=== PATIENT | male | born 1950 | race African-American/Black ===

== ENCOUNTER 2022-07-11 11:54 | Emergency (ER) | payer OTHER, MEDICAID ==
[~2022-07-11] VITALS: Ht 172.7 cm; Wt 83.0 kg
[~2022-07-11 11:54] MED LIST: ALBU6.7H15 INH; AMLO10TA80 PO; ATOR40TA70 PO; AZIT250T12 PO; CHLO25TA2 PO; CLOP75TA33 PO; P20 PO
[2022-07-11] MEDS ORDERED: SODIUM CHLORIDE 0.9% 1,000 ML IV ONE (13:00)
[2022-07-11 14:19] LABS: HEMATOCRIT. 36.6 % (42.0-52.0); HEMOGLOBIN. 12.5 g/dL (14.0-18.0); MEAN CORPUSCULAR HEMOGLOBIN 32.3 pg (28.0-32.0); MEAN CORPUSCULAR VOLUME 94.6 fL (80.0-94.0); MEAN PLATELET VOLUME 10.4 fl (7.4-10.4); PLATELET 103 x1000/uL (130-400); RED BLOOD CELL COUNT 3.87 mill/uL (4.7-6.1); RED CELL DISTRIBUTION WIDTH 18.4 % (11.6-14.6)
[2022-07-11 14:43] LABS: NUCLEATED RED BLOOD CELLS 2 /100 WBC; PLATELET ESTIMATE DECREASED
[2022-07-11] MEDS ORDERED: ASPIRIN 325MG EC TABLET PO ONE (15:45)
[2022-07-11 16:03] LABS: CHLORIDE 104 mEq/L (98-107)
[2022-07-11 19:04] VITALS: BP 128/83
== END 2022-07-11 21:40 | disposition short-term general hospital (02) ==
LOC: ER 12:31
DX: R55 Syncope and collapse (principal); R47.81 Slurred speech; I10 Essential (primary) hypertension; Z20.822 Contact with and (suspected) exposure to COVID-19; Z86.73 Personal history of transient ischemic attack (TIA), and cerebral infarction without residual deficits
CPT/HCPCS: 36415; 70450; 71045; 80053; 83880; 84484; 85025; 87426; 93005; 99285; J7030